=== PATIENT | male | born 1945 | race Caucasian/White ===

== ENCOUNTER 2022-02-09 17:08 | Inpatient (IN) | payer BC, MEDICAID ==
[~2022-02-09] VITALS: Ht 162.6 cm; Wt 77.6 kg
[2022-02-09] MEDS ORDERED: METO-290 PO (17:46)
[2022-02-09] MEDS ORDERED: TERA2CAP18 PO (17:46)
[2022-02-09] MEDS ORDERED: ONDA4TAB55 PO (17:46)
[2022-02-09] MEDS ORDERED: PRO40 PO (17:46)
[2022-02-09] MEDS ORDERED: DIPH-179 PO (17:46)
[2022-02-09 18:01] VITALS: BP_SYST 108
--- NOTE | 2022-02-09 19:28 | NUR ---
Patient to ER bed 1 to gown for evaluation. Side rails up. Report given to ROSARIO PINTO.
[2022-02-09] MEDS ORDERED: cefTRIAXone 1 GM in LIDOCAINE 1%, 20 ML MDV 2.1 ML IM ONE (20:30)
--- NOTE | 2022-02-09 20:39 | NUR ---
# 20 gauge angiocath placed to . Use of asceptic technique. Opsite placed over site. Blood return noted. Blood for lab drawn from site. Flushed with 10 cc of normal saline. No evidence of infiltration noted. Patient tolerated well. ALL BLOOD DRAWN AND SENT WITH LAB
[2022-02-09 20:45] LABS: BILIRUBIN,URINE NEGATIVE (NEGATIVE); BLOOD, URINE 1+ (NEGATIVE); COLOR,URINE YELLOW (YELLOW); GLUCOSE,URINE NEGATIVE (NEGATIVE); KETONES,URINE NEGATIVE (NEGATIVE); LEUKOCYTE ESTERASE ,URINE NEGATIVE (NEGATIVE); NITRITE, URINE NEGATIVE (NEGATIVE); PROTEIN URINE NEGATIVE (NEGATIVE); UROBILINOGEN,URINE 0.2 (0.2-1.0)
[2022-02-09] MEDS ORDERED: NACL 0.9% 1,000 ML IV ONE ×3 (20:45→22:15)
[2022-02-09 20:50] LABS: CLARITY/URINE SLIGHTLY CLOUDY (CLEAR)
[2022-02-09 21:00] LABS: ANION GAP 9 (5-15); CALCIUM 8.2 mg/dL (8.4-11.0); CHLORIDE 107 mmol/L (98-107); CREATININE 1.99 mg/dL (0.55-1.30); GLUCOSE 154 mg/dL (70-99); POTASSIUM 4.3 mmol/L (3.5-5.1); SODIUM SERUM 141 mmol/L (136-145); UREA NITROGEN, BLOOD 25 mg/dL (8-21)
[2022-02-09 21:04] LABS: HEMATOCRIT 34.5 % (36-54); HEMOGLOBIN 11.5 g/dL (14.0-18.0); MEAN CORPUSCULAR HEMOGLOBIN 28 pg (27-31); MEAN CORPUSCULAR HGB CONC 33 % (32-36); MEAN CORPUSCULAR VOLUME 83 fL (79.0-98.0); PLATELET COUNT (AUTO) 222 K/uL (130-430); RED BLOOD CELL COUNT(AUTO) 4.17 MIL/uL (4.2-6.2); RED CELL DISTRIBUTION WIDTH 19.7 % (9.0-15.0); WHITE BLOOD COUNT (AUTO) 3.8 K/uL (4.8-10.8)
[2022-02-09 21:09] LABS: ALANINE AMINOTRANSFERASE 17 U/L (12-78); ALBUMIN 3.6 g/dL (3.4-4.8); ASPARTATE AMINOTRANSFERASE 16 U/L (10-37); TOTAL BILIRUBIN 1.1 mg/dL (0.0-1.0)
[2022-02-09 21:12] LABS: BACTERIA,URINE FEW /HPF (None Seen); WBC,URINE 0-3 /HPF (0-3)
--- NOTE | 2022-02-09 21:45 | NUR ---
Spoke to Jeremiah, patient's caregiver to get further information on patient and his history.
--- NOTE | 2022-02-09 21:48 | NUR ---
LET ADMITTING KNOW TO CALL [facility]
[2022-02-09 22:02] LABS: BAND % (MANUAL) 9 % (0-6); BASOPHILS % (MANUAL) 0 % (0-2); EOSINOPHILS % (MANUAL) 0 % (0-7); LYMPHOCYTES % (MANUAL) 2 % (20-46); MONOCYTES % (MANUAL) 2 % (0-11)
[2022-02-09] MEDS ORDERED: ONDANSETRON HCL 4 MG/2 ML VIAL IVP ONE (22:15)
[2022-02-09] MEDS ORDERED: PIPERACILLIN/TAZO 3.375 GM in NS 50 ML IV ONE (22:15)
[2022-02-09] MEDS ORDERED: KCL 20 mEq in NS 1000 mL 1,000 ML IV SCH (22:15)
[2022-02-09] MEDS ORDERED: ACETAMINOPHEN 500 MG TABLET PO PRN (22:15)
--- NOTE | 2022-02-09 22:18 | NUR ---
Admit bed requested Patient will be admitted to care of . Admitted to TELE unit. Diagnosis ACUTE DEHYDRATION Inpatient (Yes or No) YES Observation (Yes or No) NO Orientation concerns or request close to nursing station (Yes or No) NO Covid Status NEGATIVE On vent or bipap NO Isolation requirements NO Needs a sitter NO From Home (Yes or if No enter name of facility) YES Requires Dialysis (Yes or No) NO Med Rec Completed (Yes of No) PENDING
--- NOTE | 2022-02-09 22:24 | NUR ---
PATIENT TAKEN TO CT SCAN.
[2022-02-09] MEDS ORDERED: PIPERACILLIN/TAZOBACTAM 3.375 GM/VIAL (ZOSYN) IV ONE (22:54)
--- NOTE | 2022-02-09 23:13 | NUR ---
Patient will be admitted to care of TELE. Admitted to unit. Will go to room . Belongings list completed. Complete and up to date summary report printed. SBAR report to be given at bedside with opportunity for questions.
[2022-02-09 23:44] VITALS: BP_SYST 105
[2022-02-10] VITALS: BP_SYST 105
[2022-02-10] MEDS ORDERED: KCL 20 mEq in NS 1000 mL 1,000 ML IV ONE (00:52)
[2022-02-10] MEDS ORDERED: PIPERACILLIN/TAZOBACTAM 2.25 GM VIAL IV ONE (00:52)
--- NOTE | 2022-02-10 01:17 | NUR ---
CONSULT CALLED FOR DR. JANET RICHARDSON E BUSINESS CONSULTANT THIS MORNING I SPOKE TO KARLY VALDEZ REASON FOR CONSULT: DEHYDRATION REQUESTING CONSULT: DR. GREENFIELD PROMOS EXECUTIVE PRODUCER PHONE NUMBER: [phone]
--- NOTE | 2022-02-10 01:19 | NUR ---
CONSULT CALLED FOR DR. GAVIRIA I SPOKE TO KARLY VALDEZ REASON FOR CONSULT: ACUTE DEHYDRATION REQUESTING CONSULT: DR. NIKITA RANGEL SALT MACHINE OPERATOR PHONE NUMBER: [phone]
[2022-02-10 04:00] VITALS: BP_SYST 110
[2022-02-10] MEDS ORDERED: PIPERACILLIN/TAZOBACTAM 2.25 GM/ DEX-IS 50 ML PREMIX IV SCH ×2 (06:00→12:00)
[2022-02-10 08:00] VITALS: BP_SYST 102
[2022-02-10] MEDS ORDERED: LOPERAMIDE HCL 2 MG CAPSULE PO PRN (11:15)
[2022-02-10] MEDS: ONDANSETRON HCL 4 MG/2 ML VIAL IVP PRN ×2 (11:22→21:15)
[2022-02-10 12:00] VITALS: BP_SYST 113
[2022-02-10] MEDS ORDERED: PANTOPRAZOLE SODIUM 40 MG/VIAL (PROTONIX) IVP ONE (14:15)
[2022-02-10 16:00] VITALS: BP_SYST 106
[2022-02-10] MEDS: metroNIDAZOLE 250 mg/NS 50 ML IV SCH ×2 (16:09→22:56)
[2022-02-10] MEDS: KCL 20 mEq in NS 1000 mL 1,000 ML IV SCH ×2 (17:28→21:34)
--- NOTE | 2022-02-10 18:45 | NUR ---
Mr Hercules has been assessed as indicated. He continues to have loose stools in the bedside commode. He denies pain. IVF have been well tolerated. He has been seen by multiple physicians today and is anticpiating some GI studies to be arranged for tomorrow. He is resting quietly at this time
--- NOTE | 2022-02-10 19:15 | NUR ---
Handoff has been given to Antonina García
[2022-02-10 20:00] VITALS: BP_SYST 118
[2022-02-10] MEDS: CEFEPIME 2 GM in D5W 100 ML IV SCH (21:15)
[2022-02-11 00:23] VITALS: BP_SYST 121
[2022-02-11] MEDS: metroNIDAZOLE 250 mg/NS 50 ML IV SCH ×2 (06:00→14:04)
[2022-02-11 06:16] LABS: BASOPHILS % (AUTO) 0.5 % (0.0-2.0); EOSINOPHILS # (AUTO) 0.1 K/uL (0.0-0.4); EOSINOPHILS % (AUTO) 2.3 % (0.0-4.0); HEMATOCRIT 24.7 % (36-54); HEMOGLOBIN 8.4 g/dL (14.0-18.0); LYMPHOCYTES # (AUTO) 0.7 K/uL (1.0-5.5); LYMPHOCYTES % (AUTO) 14.8 % (20.5-51.5); MEAN CORPUSCULAR HEMOGLOBIN 28 pg (27-31); MEAN CORPUSCULAR HGB CONC 34 % (32-36); MEAN CORPUSCULAR VOLUME 83 fL (79.0-98.0); MONOCYTES # (AUTO) 0.5 K/uL (0.0-1.0); MONOCYTES % (AUTO) 9.7 % (1.7-9.3); NEUTROPHILS # (AUTO) 3.5 K/uL (1.8-7.7); NEUTROPHILS % (AUTO) 72.7 % (40.0-70.0); PLATELET COUNT (AUTO) 185 K/uL (130-430); RED BLOOD CELL COUNT(AUTO) 2.96 MIL/uL (4.2-6.2); RED CELL DISTRIBUTION WIDTH 19.9 % (9.0-15.0); WHITE BLOOD COUNT (AUTO) 4.9 K/uL (4.8-10.8)
[2022-02-11 06:32] LABS: ALANINE AMINOTRANSFERASE 13 U/L (12-78); ALBUMIN 2.5 g/dL (3.4-4.8); ANION GAP 7 (5-15); ASPARTATE AMINOTRANSFERASE 11 U/L (10-37); BILIRUBIN,DIRECT 0.2 mg/dL (0.0-0.3); CALCIUM 8.4 mg/dL (8.4-11.0); CHLORIDE 109 mmol/L (98-107); CREATININE 1.49 mg/dL (0.55-1.30); GLUCOSE 97 mg/dL (70-99); LIPASE 96 U/L (73-393); POTASSIUM 4.1 mmol/L (3.5-5.1); SODIUM SERUM 135 mmol/L (136-145); TOTAL BILIRUBIN 0.9 mg/dL (0.0-1.0); UREA NITROGEN, BLOOD 18 mg/dL (8-21)
[2022-02-11 08:00] VITALS: BP_SYST 123
--- NOTE | 2022-02-11 10:05 | NUR ---
CONSULT ONCOLOGY RENAL CELL [facility] [place] [phone] S/W [facility]
[2022-02-11] MEDS ORDERED: fentaNYL CITRATE/PF 100 MCG/2 ML AMP ONE (10:49)
[2022-02-11] MEDS ORDERED: MIDAZOLAM HCL 5 MG/5 ML VIAL ONE (10:50)
[2022-02-11] MEDS: PANTOPRAZOLE SODIUM 40 MG/VIAL (PROTONIX) IVP SCH (12:31)
[2022-02-11] MEDS: CEFEPIME 2 GM in D5W 100 ML IV SCH ×2 (12:32→22:03)
[2022-02-11 12:44] VITALS: BP_SYST 137
[2022-02-11] MEDS ORDERED: ACETAMINOPHEN 325 MG TABLET PO PRN (13:15)
[2022-02-11] MEDS ORDERED: NALOXONE HCL 0.4 MG/ML AMP (NARCAN) IVP PRN ×2 (13:15)
[2022-02-11] MEDS ORDERED: MORPHINE 2 MG/ML INJ. SYRINGE IVP PRN ×2 (13:15)
[2022-02-11] MEDS ORDERED: ONDANSETRON HCL 4 MG/2 ML VIAL IVP PRN (13:15)
[2022-02-11] MEDS ORDERED: MAGNESIUM SULFATE 50 ML IV PRN (13:15)
[2022-02-11] MEDS ORDERED: MUPIROCIN 2% TOPICAL OINTMENT 22 GM NS PRN (13:15)
[2022-02-11] MEDS ORDERED: LORazepam 2 MG/ML VIAL IVP PRN (13:15)
[2022-02-11] MEDS ORDERED: ZOLPIDEM TARTRATE 5 MG TABLET PO PRN (13:15)
[2022-02-11] MEDS ORDERED: DOCUSATE SODIUM 100 MG CAPSULE PO PRN (13:15)
[2022-02-11] MEDS ORDERED: POTASSIUM CHLORIDE 20 MEQ TAB.PRT.SR PO PRN (13:15)
--- NOTE | 2022-02-11 13:27 | NUR ---
CONSULT CARDIOLOGY PERIAORTIC MASS DR FITZPATRICK [phone] S/W [facility]
[2022-02-11 16:42] VITALS: BP_SYST 130
[2022-02-11] MEDS: KCL 20 mEq in NS 1000 mL 1,000 ML IV SCH ×2 (17:00→18:32)
--- NOTE | 2022-02-11 18:45 | NUR ---
Mr Hercules has been assessed as indicated. The primary care Physician has been changed to Dr. Nuñez.He has completed a HIDA scan and an EGD exam today. loose stools have decreased greatly. he is now on a clear diet. IVF have been well tolerated. He continues to deny pain. He is presently resting quietly
--- NOTE | 2022-02-11 19:15 | NUR ---
handoff has been given to Tristan
[2022-02-11] MEDS: TERAZOSIN HCL 1 MG CAPSULE (HYTRIN) PO SCH (22:05)
[2022-02-11] MEDS: METHYLPREDNISOLONE SOD SUCC 40 MG/ML VIAL IVP SCH (22:09)
[2022-02-11] MEDS: HEPARIN SODIUM,PORCINE 5,000 UNITS/ML VIAL SUBCUT SCH (22:35)
[2022-02-12] MEDS: metroNIDAZOLE 250 mg/NS 50 ML IV SCH ×4 (00:18→23:08)
[2022-02-12 00:55] VITALS: BP_SYST 129
--- NOTE | 2022-02-12 02:11 | NUR ---
OOB, C/O SWEATING late entry d/t patient care. Patient reports sweating and gown was wet across chest. He denies pain. V/S taken: B/P 129/71, HR 54, 97% on room air and afebrile-97.0. He was assisted to BSC, voided 450ml yellow urine, and was assisted back to bed. fingerstick glucose checked and it was 140 mg/dL. wctm.
--- NOTE | 2022-02-12 02:15 | NUR ---
Nursing Rounds Checked on pt at 0215, pt being assisted off commode and back into bed. CRICKETZ
--- NOTE | 2022-02-12 04:50 | NUR ---
Johnny heart rate Media Reporter called to notify patient is sustaining Bradycardia HR in low 40's. Awakened patined and he reports he was sleeping good. He denied pain, feeling dizzy or lightheaded. He is having night sweats; gown on chest area is moist-will give new gown. V/S: BP 144/73, HR 52, Resp 18, 97% room air, 97.6 temporal. He was assisted to BSC for void d/t he voids small amounts and he sits on BSC few minutes till feels he is done.
[2022-02-12] MEDS: KCL 20 mEq in NS 1000 mL 1,000 ML IV SCH ×2 (06:56→19:51)
[2022-02-12 06:59] LABS: BASOPHILS % (AUTO) 0.1 % (0.0-2.0); EOSINOPHILS % (AUTO) 0.2 % (0.0-4.0); HEMATOCRIT 29.4 % (36-54); HEMOGLOBIN 9.9 g/dL (14.0-18.0); LYMPHOCYTES # (AUTO) 0.3 K/uL (1.0-5.5); LYMPHOCYTES % (AUTO) 9.7 % (20.5-51.5); MEAN CORPUSCULAR HEMOGLOBIN 28 pg (27-31); MEAN CORPUSCULAR HGB CONC 34 % (32-36); MEAN CORPUSCULAR VOLUME 84 fL (79.0-98.0); MONOCYTES % (AUTO) 1.6 % (1.7-9.3); NEUTROPHILS # (AUTO) 2.7 K/uL (1.8-7.7); NEUTROPHILS % (AUTO) 88.4 % (40.0-70.0); PLATELET COUNT (AUTO) 178 K/uL (130-430); RED BLOOD CELL COUNT(AUTO) 3.51 MIL/uL (4.2-6.2); RED CELL DISTRIBUTION WIDTH 19.2 % (9.0-15.0)
[2022-02-12 07:45] LABS: ANION GAP 11 (5-15); CALCIUM 8.5 mg/dL (8.4-11.0); CHLORIDE 108 mmol/L (98-107); CREATININE 1.42 mg/dL (0.55-1.30); GLUCOSE 162 mg/dL (70-99); POTASSIUM 4.9 mmol/L (3.5-5.1); SODIUM SERUM 133 mmol/L (136-145); UREA NITROGEN, BLOOD 13 mg/dL (8-21)
[2022-02-12] MEDS: PANTOPRAZOLE SODIUM 40 MG/VIAL (PROTONIX) IVP SCH (09:02)
[2022-02-12] MEDS: CEFEPIME 2 GM in D5W 100 ML IV SCH ×2 (09:03→20:43)
[2022-02-12] MEDS: HEPARIN SODIUM,PORCINE 5,000 UNITS/ML VIAL SUBCUT SCH ×2 (09:04→23:06)
[2022-02-12] MEDS: METHYLPREDNISOLONE SOD SUCC 40 MG/ML VIAL IVP SCH ×2 (09:15→23:05)
[2022-02-12] MEDS ORDERED: THEOPHYLLINE ANHYDROUS 200 MG CAP.ER.24H PO ONE (11:00)
[2022-02-12 13:09] VITALS: BP_SYST 132
[2022-02-12 16:25] VITALS: BP_SYST 120
--- NOTE | 2022-02-12 16:40 | NUR ---
P.T. NOTES P.T. EVAL COMPLETED; REFER TO EVAL FOR DETAILS.
--- NOTE | 2022-02-12 18:45 | NUR ---
Mr Hercules has been assessed as indicated. He denies pain. Has had very few loose stools today. He is anticipating a gastric emptying exam tomorrow. He is resting quietly at this time
--- NOTE | 2022-02-12 19:15 | NUR ---
Handoff has been given to ulises
[2022-02-12] MEDS: THEOPHYLLINE ANHYDROUS 200 MG CAP.ER.24H PO SCH (20:50)
[2022-02-12] MEDS: TERAZOSIN HCL 1 MG CAPSULE (HYTRIN) PO SCH (20:51)
[2022-02-13] MEDS: KCL 20 mEq in NS 1000 mL 1,000 ML IV SCH ×3 (06:57→22:00)
[2022-02-13] MEDS: metroNIDAZOLE 250 mg/NS 50 ML IV SCH ×3 (06:59→22:16)
[2022-02-13 07:19] LABS: BASOPHILS % (AUTO) 0.2 % (0.0-2.0); HEMATOCRIT 26.8 % (36-54); LYMPHOCYTES # (AUTO) 0.4 K/uL (1.0-5.5); LYMPHOCYTES % (AUTO) 7.1 % (20.5-51.5); MEAN CORPUSCULAR HEMOGLOBIN 28 pg (27-31); MEAN CORPUSCULAR HGB CONC 34 % (32-36); MEAN CORPUSCULAR VOLUME 83 fL (79.0-98.0); MONOCYTES # (AUTO) 0.1 K/uL (0.0-1.0); MONOCYTES % (AUTO) 2.1 % (1.7-9.3); NEUTROPHILS # (AUTO) 5.2 K/uL (1.8-7.7); NEUTROPHILS % (AUTO) 90.6 % (40.0-70.0); PLATELET COUNT (AUTO) 189 K/uL (130-430); RED BLOOD CELL COUNT(AUTO) 3.23 MIL/uL (4.2-6.2); RED CELL DISTRIBUTION WIDTH 18.8 % (9.0-15.0); WHITE BLOOD COUNT (AUTO) 5.8 K/uL (4.8-10.8)
[2022-02-13 07:33] LABS: ANION GAP 12 (5-15); CALCIUM 8.2 mg/dL (8.4-11.0); CHLORIDE 105 mmol/L (98-107); CREATININE 1.55 mg/dL (0.55-1.30); GLUCOSE 224 mg/dL (70-99); POTASSIUM 4.3 mmol/L (3.5-5.1); SODIUM SERUM 131 mmol/L (136-145); UREA NITROGEN, BLOOD 15 mg/dL (8-21)
[2022-02-13 08:04] VITALS: BP_SYST 125
[2022-02-13] MEDS: CEFEPIME 2 GM in D5W 100 ML IV SCH ×2 (08:33→20:36)
[2022-02-13] MEDS: METHYLPREDNISOLONE SOD SUCC 40 MG/ML VIAL IVP SCH ×2 (08:34→20:36)
[2022-02-13] MEDS: THEOPHYLLINE ANHYDROUS 200 MG CAP.ER.24H PO SCH (08:34)
[2022-02-13] MEDS: PANTOPRAZOLE SODIUM 40 MG/VIAL (PROTONIX) IVP SCH (08:35)
[2022-02-13] MEDS: HEPARIN SODIUM,PORCINE 5,000 UNITS/ML VIAL SUBCUT SCH ×2 (08:36→20:38)
--- NOTE | 2022-02-13 11:00 | NUR ---
patient currently off unit for gastric emptying ordered.
--- NOTE | 2022-02-13 13:00 | NUR ---
patient patricia from [facility]. pt alert, awake, oriented, denies pain and discomfort. telemonitor place back. vital sign stable, afebrile.
--- NOTE | 2022-02-13 14:18 | NUR ---
Dr. cramer made aware patient heart rate drops to 34 - 40's. asymptomatic. new order EKG stat. noted and carried out.
[2022-02-13 14:32] VITALS: BP_SYST 143
--- NOTE | 2022-02-13 15:30 | NUR ---
informed DR. cramer and Dr. Tapia about the EKG result.
[2022-02-13 16:07] VITALS: BP_SYST 141
--- NOTE | 2022-02-13 16:16 | NUR ---
gastric emptying is normal. md cramer aware, diet order received. soft, renal diet.
--- NOTE | 2022-02-13 18:50 | NUR ---
patient ate 100% of dinner tray served, denies nausea or vomiting or abdominal discomfort. ivf infusing, iv site patent. no swelling or infiltration. vital sign stable, afebrile. encourage to call when assistance needed, call light within reach. will monitor.
--- NOTE | 2022-02-13 19:15 | NUR ---
OPENING NOTE REPORT RECEIVED FROM DAYSHIFT NURSE. PATIENT RECEIVED LYING IN BED, AWAKE, ALERT, WATCHING TV, NO S/S OF ACUTE DISTRESS. BREATHING IS EVEN AND UNLABORED. HOB RAISED. IVF INFUSING WELL, IV SITE PATENT, NO SIGNS OF INFILTRATION OR INFECTION NOTED. CALL LIGHT WITH PATIENT, DEMONSTRATED BACK PROPER USE. BED IS LOCKED AND AT LOWEST POSITION. WILL CONTINUE TO MONITOR.
[2022-02-13 20:00] VITALS: BP_SYST 117
[2022-02-13] MEDS: SODIUM BICARBONATE 650 MG TABLET PO SCH (20:35)
[2022-02-13] MEDS: THEOPHYLLINE ANHYDROUS 300 MG TAB.SR.12H PO SCH (20:35)
[2022-02-13] MEDS: TERAZOSIN HCL 1 MG CAPSULE (HYTRIN) PO SCH (20:35)
[2022-02-13] MEDS: ONDANSETRON HCL 4 MG/2 ML VIAL IVP PRN (20:51)
[2022-02-14 00:57] VITALS: BP_SYST 128
[2022-02-14] MEDS: metroNIDAZOLE 250 mg/NS 50 ML IV SCH ×2 (05:14→14:38)
--- NOTE | 2022-02-14 06:27 | NUR ---
CLOSING NOTE PATIENT IN BED, RESTING. NO S/S OF ACUTE DISTRESS NOTED. BREATHING EVEN AND UNLABORED. HOB RAISED. IVF INFUSING WELL. IV SITE IS PATENT, NO SIGNS OF INFILTRATION OR INFECTION NOTED. ALL NEEDS MET THROUGHOUT SHIFT. FALL, SAFETY PRECAUTIONS MAINTAINED THROUGHOUT SHIFT. WILL CONTINUE TO MONITOR UNTIL PATIENT CARE IS ENDORSED TO ONCOMING DAYSHIFT NURSE.
[2022-02-14 07:36] LABS: HEMATOCRIT 27.4 % (36-54); HEMOGLOBIN 9.2 g/dL (14.0-18.0); LYMPHOCYTES # (AUTO) 0.5 K/uL (1.0-5.5); LYMPHOCYTES % (AUTO) 8.8 % (20.5-51.5); MEAN CORPUSCULAR HEMOGLOBIN 28 pg (27-31); MEAN CORPUSCULAR HGB CONC 34 % (32-36); MEAN CORPUSCULAR VOLUME 83 fL (79.0-98.0); MONOCYTES # (AUTO) 0.2 K/uL (0.0-1.0); MONOCYTES % (AUTO) 3.5 % (1.7-9.3); NEUTROPHILS # (AUTO) 4.8 K/uL (1.8-7.7); NEUTROPHILS % (AUTO) 87.7 % (40.0-70.0); PLATELET COUNT (AUTO) 183 K/uL (130-430); RED BLOOD CELL COUNT(AUTO) 3.29 MIL/uL (4.2-6.2); RED CELL DISTRIBUTION WIDTH 18.7 % (9.0-15.0); WHITE BLOOD COUNT (AUTO) 5.4 K/uL (4.8-10.8)
--- NOTE | 2022-02-14 07:36 | NUR ---
PHYSICAL THERAPY CO-SIGN The Physical Therapy Progress Notes documented by Product Builder have been reviewed. Reviewed/Co-Signed by: Jatin Natarajan Documentation Done by: CHUYITA SARABIA PTA Addendum: 02/14/22 at 0736 by Jatin Natarajan PT Amended: Links added.
[2022-02-14 07:56] VITALS: BP_SYST 134
[2022-02-14 07:57] LABS: ANION GAP 5 (5-15); CALCIUM 7.5 mg/dL (8.4-11.0); CHLORIDE 107 mmol/L (98-107); CREATININE 1.51 mg/dL (0.55-1.30); GLUCOSE 178 mg/dL (70-99); SODIUM SERUM 131 mmol/L (136-145); UREA NITROGEN, BLOOD 8 mg/dL (8-21)
[2022-02-14] MEDS: METHYLPREDNISOLONE SOD SUCC 40 MG/ML VIAL IVP SCH (09:06)
[2022-02-14] MEDS: THEOPHYLLINE ANHYDROUS 300 MG TAB.SR.12H PO SCH (09:06)
[2022-02-14] MEDS: PANTOPRAZOLE SODIUM 40 MG/VIAL (PROTONIX) IVP SCH (09:06)
[2022-02-14] MEDS: SODIUM BICARBONATE 650 MG TABLET PO SCH ×2 (09:07→14:39)
[2022-02-14] MEDS: CEFEPIME 2 GM in D5W 100 ML IV SCH (09:07)
[2022-02-14] MEDS: KCL 20 mEq in NS 1000 mL 1,000 ML IV SCH (09:27)
[2022-02-14] MEDS: HEPARIN SODIUM,PORCINE 5,000 UNITS/ML VIAL SUBCUT SCH (09:37)
[2022-02-14] MEDS ORDERED: AMOX500C2 PO ×2 (10:25)
[2022-02-14] MEDS ORDERED: PANT40TA45 PO (10:25)
[2022-02-14] MEDS ORDERED: [UNRECOGNIZED DRUG - CODE] PO ×2 (10:25)
[2022-02-14] MEDS ORDERED: PRED20TA PO (10:29)
[2022-02-14 12:39] VITALS: BP_SYST 130
[2022-02-14 16:05] VITALS: BP_SYST 132
--- NOTE | 2022-02-14 18:45 | NUR ---
RN NOTES:FAMILY CAME TO COMMUNITY ACTION WORKER PATIENT. DISCHARGE INSTRUCTIONS GIVEN TO PATIENT. VERBALIZED UNDERSTANDING.
--- NOTE | 2022-02-14 18:55 | NUR ---
RN NOTES: PATIENT DISCHARGED. NOT IN DISTRESS. NOT IN PAIN. AMBULATORY WITH CANE. DISCHARGED STABLE. WHEELED OUT TO LOBBY.
[2022-02-14] MEDS ORDERED: THEOPHYLLINE ANHYDROUS 200 MG CAP.ER.24H PO SCH (21:00)
== END 2022-02-14 19:00 | disposition home or self-care (01) | DRG 683 ==
LOC: SED 17:08 → STU 22:08 → SED 23:11 → STU 23:42
PROVIDERS: ADMIT Student in an Organized Health Care Education/Training Program; ATTEND Student in an Organized Health Care Education/Training Program
PROC: 0DB68ZX Excision of Stomach, Via Natural or Artificial Opening Endoscopic, Diagnostic (ICD-10-PCS; principal; 2022-02-11 14:15)
DX: N17.9 Acute kidney failure, unspecified (principal); C64.2 Malignant neoplasm of left kidney, except renal pelvis; K29.70 Gastritis, unspecified, without bleeding; E11.43 Type 2 diabetes mellitus with diabetic autonomic (poly)neuropathy; E86.0 Dehydration; K52.9 Noninfective gastroenteritis and colitis, unspecified; K44.9 Diaphragmatic hernia without obstruction or gangrene; K31.84 Gastroparesis; N40.0 Benign prostatic hyperplasia without lower urinary tract symptoms; D72.819 Decreased white blood cell count, unspecified; R00.1 Bradycardia, unspecified; Z20.822 Contact with and (suspected) exposure to COVID-19; I10 Essential (primary) hypertension; J45.909 Unspecified asthma, uncomplicated; Z88.2 Allergy status to sulfonamides; Z79.899 Other long term (current) drug therapy; Z87.891 Personal history of nicotine dependence; Z85.528 Personal history of other malignant neoplasm of kidney; Z92.21 Personal history of antineoplastic chemotherapy
CPT/HCPCS: 36415; 43239; 71045; 76376; 78226; 78264-TC; 80048; 80053; 80076; 81000; 82272; 82533; 82550; 82962; 83036; 83605; 83690; 83735; 84484; 85007; 85025; 85027; 87040; 87045-TC; 87046; 87081; 87086; 87230-TC; 88305; 88312; 88313; 89055; 93005; 93306; 96361; 96365; 96375; 97110-GP; 97112-GP; 97116-GP; 99285; A9537; A9541; C9113; G0378; J0692; J1030; J1644; J2250; J2405; J2543; J3010; J3480; J3490; J7030; J7060

== ENCOUNTER 2022-02-20 20:04 | Inpatient (IN) | payer BC, MEDICAID ==
[~2022-02-20] VITALS: Ht 160 cm; Wt 78.5 kg
[~2022-02-20 20:04] MED LIST: AMOX500C2 PO; DIPH-179 PO; METO-290 PO; ONDA4TAB55 PO; PANT40TA45 PO; PRED20TA PO; TERA2CAP18 PO; [UNRECOGNIZED DRUG - CODE] PO
[2022-02-20 20:39] VITALS: BP_SYST 128
[2022-02-21 01:10] LABS: RED BLOOD CELL COUNT(AUTO) 3.56 MIL/uL (4.2-6.2)
[2022-02-21 01:18] LABS: EOSINOPHILS # (AUTO) 0.1 K/uL (0.0-0.4); EOSINOPHILS % (AUTO) 0.8 % (0.0-4.0); HEMATOCRIT 30.2 % (36-54); LYMPHOCYTES # (AUTO) 0.7 K/uL (1.0-5.5); LYMPHOCYTES % (AUTO) 5.6 % (20.5-51.5); MEAN CORPUSCULAR HEMOGLOBIN 28 pg (27-31); MEAN CORPUSCULAR HGB CONC 33 % (32-36); MEAN CORPUSCULAR VOLUME 85 fL (79.0-98.0); MONOCYTES # (AUTO) 0.7 K/uL (0.0-1.0); MONOCYTES % (AUTO) 5.2 % (1.7-9.3); NEUTROPHILS # (AUTO) 11.2 K/uL (1.8-7.7); NEUTROPHILS % (AUTO) 88.4 % (40.0-70.0); PLATELET COUNT (AUTO) 236 K/uL (130-430); RED CELL DISTRIBUTION WIDTH 19.8 % (9.0-15.0); WHITE BLOOD COUNT (AUTO) 12.7 K/uL (4.8-10.8)
[2022-02-21 01:27] LABS: ANION GAP 5 (5-15); CALCIUM 7.7 mg/dL (8.4-11.0); CHLORIDE 104 mmol/L (98-107); CREATININE 1.48 mg/dL (0.55-1.30); GLUCOSE 111 mg/dL (70-99); POTASSIUM 3.4 mmol/L (3.5-5.1); SODIUM SERUM 136 mmol/L (136-145); UREA NITROGEN, BLOOD 16 mg/dL (8-21)
[2022-02-21] MEDS ORDERED: METHYLPREDNISOLONE SOD SUCC 40 MG/ML VIAL IVP ONE (01:30)
[2022-02-21] MEDS ORDERED: ALBUTEROL SULFATE 0.083% 2.5 MG/3 ML VIAL.NEB INH ONE (01:30)
[2022-02-21] MEDS ORDERED: IPRATROPIUM BROM 0.5 MG/2.5 ML VIAL.NEB (ATROVENT) INH ONE (01:30)
[2022-02-21 01:33] LABS: INR 1.2 (0.80-1.20); PROTHROMBIN TIME 11.6 SECS (9.5-12.5)
[2022-02-21 01:36] LABS: ALANINE AMINOTRANSFERASE 21 U/L (12-78); ALBUMIN 2.6 g/dL (3.4-4.8); ASPARTATE AMINOTRANSFERASE 7 U/L (10-37); TOTAL BILIRUBIN 1.1 mg/dL (0.0-1.0)
[2022-02-21 01:42] LABS: BILIRUBIN,URINE NEGATIVE (NEGATIVE); BLOOD, URINE 1+ (NEGATIVE); CLARITY/URINE CLEAR (CLEAR); COLOR,URINE YELLOW (YELLOW); GLUCOSE,URINE NEGATIVE (NEGATIVE); KETONES,URINE NEGATIVE (NEGATIVE); LEUKOCYTE ESTERASE ,URINE NEGATIVE (NEGATIVE); NITRITE, URINE NEGATIVE (NEGATIVE); PH,URINE 5.5 (5.0-8.0); PROTEIN URINE TRACE (NEGATIVE); UROBILINOGEN,URINE 0.2 (0.2-1.0)
[2022-02-21 01:55] LABS: BACTERIA,URINE FEW /HPF (None Seen); WBC,URINE 0-3 /HPF (0-3)
[2022-02-21 01:56] LABS: URIC ACID CRYSTALS,URINE 30-50 /HPF (None Seen)
[2022-02-21 04:45] VITALS: BP_SYST 118
[2022-02-21 08:00] VITALS: BP_SYST 133
[2022-02-21 11:43] VITALS: BP_SYST 123
[2022-02-21] MEDS ORDERED: D5/0.45 NS 500 ML IV ONE (12:45)
[2022-02-21 15:40] VITALS: BP_SYST 113
[2022-02-21] MEDS: cefTRIAXone 1 GM IVPB PREMIX 50 ML IV SCH (16:17)
[2022-02-21] MEDS: AZITHROMYCIN 250 MG in NS 250 ML IV SCH (16:30)
[2022-02-21] MEDS ORDERED: ENOXAPARIN SODIUM 40 MG/0.4 ML SYRINGE SUBCUT ONE (18:00)
[2022-02-21 20:00] VITALS: BP_SYST 135
[2022-02-21] MEDS ORDERED: methylPREDNISolone SOD SUCC/PF 62.5 MG/ML VIAL IVP SCH (21:00)
[2022-02-21] MEDS: DECADRON 4 MG TABLET PO SCH (21:49)
[2022-02-21] MEDS: ASCORBIC ACID 500 MG TABLET PO SCH (21:50)
[2022-02-21] MEDS: metroNIDAZOLE 500 mg/NS 100 ML IV SCH (21:51)
[2022-02-21] MEDS: NACL 0.9% 1,000 ML IV SCH (22:23)
[2022-02-22] VITALS: BP_SYST 116
[2022-02-22 04:00] VITALS: BP_SYST 129
[2022-02-22 06:36] LABS: BASOPHILS % (AUTO) 0.1 % (0.0-2.0); HEMATOCRIT 28.9 % (36-54); HEMOGLOBIN 9.8 g/dL (14.0-18.0); LYMPHOCYTES # (AUTO) 0.3 K/uL (1.0-5.5); LYMPHOCYTES % (AUTO) 4.4 % (20.5-51.5); MEAN CORPUSCULAR HEMOGLOBIN 28 pg (27-31); MEAN CORPUSCULAR HGB CONC 34 % (32-36); MEAN CORPUSCULAR VOLUME 83 fL (79.0-98.0); MONOCYTES # (AUTO) 0.3 K/uL (0.0-1.0); MONOCYTES % (AUTO) 3.8 % (1.7-9.3); NEUTROPHILS # (AUTO) 6.7 K/uL (1.8-7.7); NEUTROPHILS % (AUTO) 91.7 % (40.0-70.0); PLATELET COUNT (AUTO) 202 K/uL (130-430); RED BLOOD CELL COUNT(AUTO) 3.48 MIL/uL (4.2-6.2); RED CELL DISTRIBUTION WIDTH 19.8 % (9.0-15.0); WHITE BLOOD COUNT (AUTO) 7.3 K/uL (4.8-10.8)
[2022-02-22 07:07] LABS: ANION GAP 7 (5-15); CALCIUM 8.2 mg/dL (8.4-11.0); CHLORIDE 104 mmol/L (98-107); CREATININE 1.15 mg/dL (0.55-1.30); GLUCOSE 183 mg/dL (70-99); SODIUM SERUM 135 mmol/L (136-145); UREA NITROGEN, BLOOD 23 mg/dL (8-21)
[2022-02-22 08:00] VITALS: BP_SYST 130
[2022-02-22] MEDS: metroNIDAZOLE 500 mg/NS 100 ML IV SCH ×2 (08:46→20:59)
[2022-02-22] MEDS: ENOXAPARIN SODIUM 40 MG/0.4 ML SYRINGE SUBCUT SCH (08:47)
[2022-02-22] MEDS: ASCORBIC ACID 500 MG TABLET PO SCH ×2 (08:47→20:59)
[2022-02-22] MEDS: CHOLECALCIFEROL (VITAMIN D3) 5,000 UNIT TABLET PO SCH (08:47)
[2022-02-22] MEDS: NACL 0.9% 1,000 ML IV SCH ×2 (11:55→18:27)
[2022-02-22 12:00] VITALS: BP_SYST 124
[2022-02-22] MEDS: AZITHROMYCIN 250 MG in NS 250 ML IV SCH (13:43)
[2022-02-22] MEDS: cefTRIAXone 1 GM IVPB PREMIX 50 ML IV SCH (15:44)
[2022-02-22 16:00] VITALS: BP_SYST 117
[2022-02-22] MEDS: DECADRON 4 MG TABLET PO SCH (18:25)
[2022-02-22 20:00] VITALS: BP_SYST 127
[2022-02-23] VITALS (7 sets, daily range): BP systolic 133–155
[2022-02-23 08:18] LABS: BASOPHILS % (AUTO) 0.1 % (0.0-2.0); HEMATOCRIT 29.3 % (36-54); HEMOGLOBIN 9.9 g/dL (14.0-18.0); LYMPHOCYTES # (AUTO) 0.3 K/uL (1.0-5.5); LYMPHOCYTES % (AUTO) 3.6 % (20.5-51.5); MEAN CORPUSCULAR HEMOGLOBIN 28 pg (27-31); MEAN CORPUSCULAR HGB CONC 34 % (32-36); MEAN CORPUSCULAR VOLUME 84 fL (79.0-98.0); MONOCYTES # (AUTO) 0.2 K/uL (0.0-1.0); MONOCYTES % (AUTO) 2.6 % (1.7-9.3); NEUTROPHILS # (AUTO) 7.2 K/uL (1.8-7.7); NEUTROPHILS % (AUTO) 93.7 % (40.0-70.0); PLATELET COUNT (AUTO) 201 K/uL (130-430); RED BLOOD CELL COUNT(AUTO) 3.48 MIL/uL (4.2-6.2); RED CELL DISTRIBUTION WIDTH 19.5 % (9.0-15.0); WHITE BLOOD COUNT (AUTO) 7.7 K/uL (4.8-10.8)
[2022-02-23 09:06] LABS: ANION GAP 8 (5-15); CALCIUM 8.8 mg/dL (8.4-11.0); CHLORIDE 101 mmol/L (98-107); CREATININE 1.22 mg/dL (0.55-1.30); GLUCOSE 212 mg/dL (70-99); POTASSIUM 4.2 mmol/L (3.5-5.1); SODIUM SERUM 131 mmol/L (136-145); UREA NITROGEN, BLOOD 21 mg/dL (8-21)
[2022-02-23] MEDS: ENOXAPARIN SODIUM 40 MG/0.4 ML SYRINGE SUBCUT SCH (09:24)
[2022-02-23] MEDS: ASCORBIC ACID 500 MG TABLET PO SCH ×2 (09:25→21:00)
[2022-02-23] MEDS: CHOLECALCIFEROL (VITAMIN D3) 5,000 UNIT TABLET PO SCH (09:26)
[2022-02-23] MEDS ORDERED: DECADRON 4 MG TABLET PO SCH ×2 (14:00)
[2022-02-23] MEDS: metroNIDAZOLE 500 mg/NS 100 ML IV SCH ×2 (14:29→20:59)
[2022-02-23] MEDS: NACL 0.9% 1,000 ML IV SCH (14:32)
[2022-02-23] MEDS: AZITHROMYCIN 250 MG in NS 250 ML IV SCH (14:39)
[2022-02-23] MEDS: cefTRIAXone 1 GM IVPB PREMIX 50 ML IV SCH (15:42)
[2022-02-23] MEDS ORDERED: ATROPINE SULFATE 1 MG/10 ML SYRINGE IVP PRN (22:15)
[2022-02-24] VITALS: BP_SYST 145
[2022-02-24 07:06] LABS: BASOPHILS % (AUTO) 0.1 % (0.0-2.0); HEMATOCRIT 30.9 % (36-54); HEMOGLOBIN 10.4 g/dL (14.0-18.0); LYMPHOCYTES # (AUTO) 0.5 K/uL (1.0-5.5); LYMPHOCYTES % (AUTO) 6.5 % (20.5-51.5); MEAN CORPUSCULAR HEMOGLOBIN 28 pg (27-31); MEAN CORPUSCULAR HGB CONC 34 % (32-36); MEAN CORPUSCULAR VOLUME 84 fL (79.0-98.0); MONOCYTES # (AUTO) 0.4 K/uL (0.0-1.0); MONOCYTES % (AUTO) 5.5 % (1.7-9.3); NEUTROPHILS # (AUTO) 6.5 K/uL (1.8-7.7); NEUTROPHILS % (AUTO) 87.9 % (40.0-70.0); PLATELET COUNT (AUTO) 179 K/uL (130-430); RED BLOOD CELL COUNT(AUTO) 3.68 MIL/uL (4.2-6.2); WHITE BLOOD COUNT (AUTO) 7.4 K/uL (4.8-10.8)
[2022-02-24 07:56] LABS: ANION GAP 9 (5-15); CALCIUM 8.2 mg/dL (8.4-11.0); CHLORIDE 103 mmol/L (98-107); CREATININE 1.17 mg/dL (0.55-1.30); GLUCOSE 157 mg/dL (70-99); SODIUM SERUM 135 mmol/L (136-145); UREA NITROGEN, BLOOD 19 mg/dL (8-21)
[2022-02-24 08:00] VITALS: BP_SYST 137
[2022-02-24] MEDS: ASCORBIC ACID 500 MG TABLET PO SCH ×2 (10:06→22:19)
[2022-02-24] MEDS: THEOPHYLLINE ANHYDROUS 300 MG TAB.SR.12H PO SCH ×2 (10:07→22:20)
[2022-02-24] MEDS: ENOXAPARIN SODIUM 40 MG/0.4 ML SYRINGE SUBCUT SCH (10:07)
[2022-02-24] MEDS: CHOLECALCIFEROL (VITAMIN D3) 5,000 UNIT TABLET PO SCH (10:07)
[2022-02-24] MEDS: NACL 0.9% 1,000 ML IV SCH (10:08)
[2022-02-24] MEDS: metroNIDAZOLE 500 mg/NS 100 ML IV SCH ×2 (10:08→22:19)
[2022-02-24] MEDS ORDERED: ALBUTEROL MDI INHALATION 8 GM INH INH PRN (11:00)
[2022-02-24] MEDS ORDERED: ACETYLCYSTEINE 20% 4 ML VIAL (RT) INH SCH (11:00)
[2022-02-24] MEDS ORDERED: ALBUTEROL MDI INHALATION 8 GM INH INH ONE (11:15)
[2022-02-24 12:00] VITALS: BP_SYST 142
[2022-02-24] MEDS ORDERED: ALBUTEROL MDI INHALATION 8 GM INH INH SCH (13:00)
[2022-02-24] MEDS: AZITHROMYCIN 250 MG in NS 250 ML IV SCH (13:55)
[2022-02-24] MEDS: cefTRIAXone 1 GM IVPB PREMIX 50 ML IV SCH (15:28)
[2022-02-24 18:33] VITALS: BP_SYST 139
[2022-02-24 20:00] VITALS: BP_SYST 145
[2022-02-24 21:05] LABS: THYROID STIMULATING HORMONE 2.5 uIu/mL (0.36-3.74)
[2022-02-24] MEDS: METHYLPREDNISOLONE SOD SUCC 40 MG/ML VIAL IVP SCH (22:31)
[2022-02-25 02:00] VITALS: BP_SYST 139
[2022-02-25] MEDS: NACL 0.9% 1,000 ML IV SCH ×3 (06:35→21:35)
[2022-02-25 08:00] VITALS: BP_SYST 138
[2022-02-25] MEDS: ASCORBIC ACID 500 MG TABLET PO SCH ×2 (08:51→21:35)
[2022-02-25] MEDS: CHOLECALCIFEROL (VITAMIN D3) 5,000 UNIT TABLET PO SCH (08:51)
[2022-02-25] MEDS: ENOXAPARIN SODIUM 40 MG/0.4 ML SYRINGE SUBCUT SCH (08:52)
[2022-02-25] MEDS: THEOPHYLLINE ANHYDROUS 300 MG TAB.SR.12H PO SCH ×2 (08:59→21:35)
[2022-02-25] MEDS: METHYLPREDNISOLONE SOD SUCC 40 MG/ML VIAL IVP SCH ×2 (11:18→21:34)
[2022-02-25] MEDS: metroNIDAZOLE 500 mg/NS 100 ML IV SCH ×2 (11:18→21:35)
[2022-02-25 12:00] VITALS: BP_SYST 150
[2022-02-25 16:00] VITALS: BP_SYST 134
[2022-02-25] MEDS: AZITHROMYCIN 250 MG in NS 250 ML IV SCH (16:22)
[2022-02-25] MEDS: cefTRIAXone 1 GM IVPB PREMIX 50 ML IV SCH (16:22)
[2022-02-25 20:00] VITALS: BP_SYST 148
[2022-02-26 02:00] VITALS: BP_SYST 141
[2022-02-26 06:11] LABS: BASOPHILS % (AUTO) 0.1 % (0.0-2.0); LYMPHOCYTES # (AUTO) 0.2 K/uL (1.0-5.5); LYMPHOCYTES % (AUTO) 3.2 % (20.5-51.5); MEAN CORPUSCULAR HEMOGLOBIN 28 pg (27-31); MEAN CORPUSCULAR HGB CONC 33 % (32-36); MEAN CORPUSCULAR VOLUME 84 fL (79.0-98.0); MONOCYTES # (AUTO) 0.2 K/uL (0.0-1.0); MONOCYTES % (AUTO) 3.7 % (1.7-9.3); NEUTROPHILS # (AUTO) 5.8 K/uL (1.8-7.7); PLATELET COUNT (AUTO) 175 K/uL (130-430); RED BLOOD CELL COUNT(AUTO) 3.56 MIL/uL (4.2-6.2); RED CELL DISTRIBUTION WIDTH 18.3 % (9.0-15.0); WHITE BLOOD COUNT (AUTO) 6.2 K/uL (4.8-10.8)
[2022-02-26 06:23] LABS: ANION GAP 11 (5-15); CALCIUM 7.9 mg/dL (8.4-11.0); CHLORIDE 103 mmol/L (98-107); CREATININE 1.53 mg/dL (0.55-1.30); GLUCOSE 258 mg/dL (70-99); POTASSIUM 4.2 mmol/L (3.5-5.1); SODIUM SERUM 135 mmol/L (136-145); UREA NITROGEN, BLOOD 21 mg/dL (8-21)
[2022-02-26 08:00] VITALS: BP_SYST 126
[2022-02-26] MEDS: METHYLPREDNISOLONE SOD SUCC 40 MG/ML VIAL IVP SCH (08:48)
[2022-02-26] MEDS: THEOPHYLLINE ANHYDROUS 300 MG TAB.SR.12H PO SCH (09:06)
[2022-02-26] MEDS: ASCORBIC ACID 500 MG TABLET PO SCH (09:06)
[2022-02-26] MEDS: CHOLECALCIFEROL (VITAMIN D3) 5,000 UNIT TABLET PO SCH (09:07)
[2022-02-26] MEDS: ENOXAPARIN SODIUM 40 MG/0.4 ML SYRINGE SUBCUT SCH (09:08)
[2022-02-26 16:51] VITALS: BP_SYST 126
[2022-02-26] MEDS ORDERED: ASC500 PO (18:13)
[2022-02-26] MEDS ORDERED: CHOL500013 PO (18:13)
[2022-02-26] MEDS ORDERED: Zinc Sulfate PO (18:13)
[2022-02-26] MEDS ORDERED: GUAI-723 PO (18:14)
[2022-02-26] MEDS ORDERED: IPRA3AMP9 INH (18:15)
[2022-02-27] MEDS ORDERED: DECADRON 4 MG TABLET PO SCH (09:00)
== END 2022-02-26 18:30 | disposition home or self-care (01) | DRG 177 ==
LOC: SED 20:04 → STU 02-21 03:06
PROVIDERS: ADMIT Internal Medicine; ATTEND Internal Medicine
DX: U07.1 COVID-19 (principal); J12.82 Pneumonia due to coronavirus disease 2019; J44.0 Chronic obstructive pulmonary disease with (acute) lower respiratory infection; C64.9 Malignant neoplasm of unspecified kidney, except renal pelvis; K52.1 Toxic gastroenteritis and colitis; E86.0 Dehydration; I12.9 Hypertensive chronic kidney disease with stage 1 through stage 4 chronic kidney disease, or unspecified chronic kidney disease; N18.30 Chronic kidney disease, stage 3 unspecified; R00.1 Bradycardia, unspecified; Z85.528 Personal history of other malignant neoplasm of kidney; Z79.899 Other long term (current) drug therapy
CPT/HCPCS: 36415; 71045; 80048; 80053; 80198; 81000; 82728; 83605; 84443; 84484; 85025; 85379; 85610-TC; 85730-TC; 86140; 87040; 87081; 87086; 87230-TC; 93005; 93923; 94640; 94664; 96374; 99285; G0378; J0456; J0696; J1030; J1650; J3490; J7050; J7613; J8540

== ENCOUNTER 2023-08-24 20:04 | Emergency (ER) | payer BC, MEDICAID ==
[~2023-08-24] VITALS: Ht 152.4 cm; Wt 136.1 kg
[~2023-08-24 20:04] MED LIST changes: -AMOX500C2 PO; +ASC500 PO; +CHOL500013 PO; +GUAI-723 PO; +IPRA3AMP9 INH; +Zinc Sulfate PO; -[UNRECOGNIZED DRUG - CODE] PO
[2023-08-24 20:20] VITALS: BP_SYST 139; PULSE 74; RESP 18; TEMP 97.2; O2SAT 100
[2023-08-24 20:59] LABS: BASOPHILS % (AUTO) 0.7 % (0.0-2.0); EOSINOPHILS # (AUTO) 0.2 K/uL (0.0-0.4); EOSINOPHILS % (AUTO) 3.5 % (0.0-4.0); HEMATOCRIT 24.4 % (36-54); LYMPHOCYTES % (AUTO) 15.6 % (20.5-51.5); MEAN CORPUSCULAR HEMOGLOBIN 26 pg (27-31); MEAN CORPUSCULAR HGB CONC 33 % (32-36); MEAN CORPUSCULAR VOLUME 79 fL (79.0-98.0); MONOCYTES # (AUTO) 0.5 K/uL (0.0-1.0); MONOCYTES % (AUTO) 7.3 % (1.7-9.3); NEUTROPHILS # (AUTO) 4.7 K/uL (1.8-7.7); NEUTROPHILS % (AUTO) 72.9 % (40.0-70.0); PLATELET COUNT (AUTO) 250 K/uL (130-430); RED CELL DISTRIBUTION WIDTH 15.7 % (9.0-15.0); WHITE BLOOD COUNT (AUTO) 6.4 K/uL (4.8-10.8)
[2023-08-24 21:18] LABS: ANION GAP 10 (5-15); CALCIUM 8.9 mg/dL (8.4-11.0); CARBON DIOXIDE 23 mmol/L (23-29); CHLORIDE 108 mmol/L (98-107); GLUCOSE 81 mg/dL (74-106); POTASSIUM 4.9 mmol/L (3.5-5.1); SODIUM SERUM 141 mmol/L (136-145); UREA NITROGEN, BLOOD 40 mg/dL (8-21)
[2023-08-24 21:45] VITALS: BP_SYST 122; PULSE 78; RESP 18; TEMP 98.3; O2SAT 98
== END 2023-08-24 22:33 | disposition home or self-care (01) ==
LOC: SED 20:04
DX: D64.9 Anemia, unspecified (principal); R53.1 Weakness; J44.9 Chronic obstructive pulmonary disease, unspecified; E11.9 Type 2 diabetes mellitus without complications; I10 Essential (primary) hypertension; Z85.528 Personal history of other malignant neoplasm of kidney; Z79.899 Other long term (current) drug therapy
CPT/HCPCS: 36415; 80048; 85025; 86886; 86900; 86901; 99283

== ENCOUNTER 2023-09-25 15:47 | Observation (INO) | payer BC, MEDICAID ==
[~2023-09-25] VITALS: Ht 170.2 cm; Wt 77.6 kg
[~2023-09-25 15:47] MED LIST changes: -ASC500 PO; -CHOL500013 PO; -DIPH-179 PO; -GUAI-723 PO; -IPRA3AMP9 INH; -METO-290 PO; -ONDA4TAB55 PO; -PANT40TA45 PO; -PRED20TA PO; -Zinc Sulfate PO
[2023-09-25 16:30] VITALS: BP_SYST 118; PULSE 75; RESP 18; TEMP 97; O2SAT 96
[2023-09-25 18:44] LABS: BASOPHILS % (AUTO) 0.7 % (0.0-2.0); EOSINOPHILS # (AUTO) 0.3 K/uL (0.0-0.4); EOSINOPHILS % (AUTO) 4.3 % (0.0-4.0); HEMATOCRIT 29.6 % (36-54); HEMOGLOBIN 9.7 g/dL (14.0-18.0); LYMPHOCYTES # (AUTO) 0.6 K/uL (1.0-5.5); LYMPHOCYTES % (AUTO) 8.4 % (20.5-51.5); MEAN CORPUSCULAR HEMOGLOBIN 25 pg (27-31); MEAN CORPUSCULAR HGB CONC 33 % (32-36); MEAN CORPUSCULAR VOLUME 75 fL (79.0-98.0); MONOCYTES # (AUTO) 0.5 K/uL (0.0-1.0); MONOCYTES % (AUTO) 7.4 % (1.7-9.3); NEUTROPHILS # (AUTO) 5.3 K/uL (1.8-7.7); NEUTROPHILS % (AUTO) 79.2 % (40.0-70.0); PLATELET COUNT (AUTO) 328 K/uL (130-430); RED BLOOD CELL COUNT(AUTO) 3.92 MIL/uL (4.2-6.2); RED CELL DISTRIBUTION WIDTH 15.8 % (9.0-15.0); WHITE BLOOD COUNT (AUTO) 6.7 K/uL (4.8-10.8)
[2023-09-25 19:05] LABS: ANION GAP 14 (5-15); CALCIUM 9.2 mg/dL (8.4-11.0); CARBON DIOXIDE 24 mmol/L (23-29); CHLORIDE 101 mmol/L (98-107); CREATININE 1.85 mg/dL (0.55-1.30); GLUCOSE 83 mg/dL (74-106); POTASSIUM 4.9 mmol/L (3.5-5.1); SODIUM SERUM 139 mmol/L (136-145); UREA NITROGEN, BLOOD 38 mg/dL (8-21)
[2023-09-25 19:09] LABS: ALANINE AMINOTRANSFERASE 14 U/L (12-78); ALBUMIN 4.2 g/dL (3.4-4.8); ASPARTATE AMINOTRANSFERASE 10 U/L (10-37); BILIRUBIN,DIRECT 0.1 mg/dL (0.0-0.3); LIPASE 31 U/L (16-77); TOTAL BILIRUBIN 0.6 mg/dL (0.0-1.0); TOTAL PROTEIN, SERUM 8.1 g/dL (6.4-8.3)
[2023-09-25] MEDS: NACL 0.9% 1,000 ML IV ONE (20:02)
[2023-09-25] MEDS: ONDANSETRON HCL 4 MG/2 ML VIAL IVP ONE (20:03)
[2023-09-25] MEDS: CIPROFLOXACIN LACT 400 MG/D5W 200 ML IV SCH (22:54)
[2023-09-25] MEDS ORDERED: DOCU250C71 PO (23:03)
[2023-09-25] MEDS ORDERED: METO10TA3 PO (23:03)
[2023-09-25] MEDS ORDERED: ASPI-1393 PO (23:03)
[2023-09-25] MEDS ORDERED: PROC5TAB12 PO (23:09)
[2023-09-25] MEDS ORDERED: ONDANSETRON 8 MG PO (23:12)
[2023-09-25] MEDS ORDERED: ONDA8TAB60 PO (23:16)
[2023-09-25] MEDS ORDERED: CHOL200019 PO (23:16)
[2023-09-25] MEDS ORDERED: FAMO40TA7 PO (23:20)
[2023-09-25] MEDS ORDERED: LOPE2CAP PO (23:20)
[2023-09-26] MEDS ORDERED: ONDANSETRON HCL 4 MG/2 ML VIAL IVP PRN (00:30)
[2023-09-26] MEDS: D5/0.45 NS 1,000 ML IV SCH (01:16)
[2023-09-26 04:03] VITALS: BP_SYST 115; PULSE 60; RESP 18; TEMP 98.1; O2SAT 99
[2023-09-26 04:46] VITALS: BP_SYST 115; PULSE 60; RESP 18; TEMP 98.1; O2SAT 99
[2023-09-26 04:51] VITALS: BP_SYST 115; PULSE 60; RESP 18; TEMP 98.1
[2023-09-26] MEDS: PIPERACILLIN/TAZO 3.375 GM in NS 50 ML IV SCH (07:08)
[2023-09-26 08:18] VITALS: BP_SYST 110; PULSE 55; RESP 17; TEMP 98; O2SAT 99
[2023-09-26] MEDS ORDERED: PROCHLORPERAZINE MALEATE 5 MG TABLET PO PRN (09:30)
[2023-09-26] MEDS: 0.45% NACL 1,000 ML IV SCH (10:39)
[2023-09-26] MEDS ORDERED: BISACODYL 5 MG TABLET.DR (DULCOLAX) PO PRN (10:45)
[2023-09-26] MEDS ORDERED: DIATR MEGLU/DIATRIZ SOD 30 ML SOLUTION PO ONE (12:35)
[2023-09-26 15:00] VITALS: BP_SYST 112; PULSE 60; RESP 17; TEMP 98; O2SAT 99
[2023-09-26] MEDS: METOCLOPRAMIDE HCL 10 MG TABLET PO SCH (17:29)
[2023-09-26] MEDS: SUCRALFATE 1 GM/10 ML UDC GT SCH (17:29)
[2023-09-26] MEDS ORDERED: iohexoL 350 mgI/mL, 100 ML INFUS..BTL IV ONE (17:40)
[2023-09-26] MEDS ORDERED: GASTROGRAFIN 120 ML ONE (19:13)
[2023-09-26] MEDS: TERAZOSIN HCL 1 MG CAPSULE (HYTRIN) PO SCH (21:00)
[2023-09-26 21:02] VITALS: BP_SYST 119; PULSE 56; RESP 18; TEMP 96.4; O2SAT 97
[2023-09-27] VITALS (7 sets, daily range): BP systolic 101–141; PULSE 56–90; RESP 18; TEMP 96.4–98.4; O2SAT 97–100
[2023-09-27 00:31] LABS: BILIRUBIN,URINE NEGATIVE (NEGATIVE); BLOOD, URINE NEGATIVE (NEGATIVE); CLARITY/URINE CLEAR (CLEAR); COLOR,URINE YELLOW (YELLOW); GLUCOSE,URINE NEGATIVE (NEGATIVE); KETONES,URINE NEGATIVE (NEGATIVE); LEUKOCYTE ESTERASE ,URINE NEGATIVE (NEGATIVE); NITRITE, URINE NEGATIVE (NEGATIVE); PROTEIN URINE NEGATIVE (NEGATIVE); UROBILINOGEN,URINE 0.2 (0.2-1.0)
[2023-09-27 07:30] LABS: EOSINOPHILS # (AUTO) 0.2 K/uL (0.0-0.4); EOSINOPHILS % (AUTO) 5.3 % (0.0-4.0); HEMATOCRIT 25.4 % (36-54); HEMOGLOBIN 8.4 g/dL (14.0-18.0); LYMPHOCYTES # (AUTO) 0.5 K/uL (1.0-5.5); LYMPHOCYTES % (AUTO) 10.2 % (20.5-51.5); MEAN CORPUSCULAR HEMOGLOBIN 25 pg (27-31); MEAN CORPUSCULAR HGB CONC 33 % (32-36); MEAN CORPUSCULAR VOLUME 75 fL (79.0-98.0); MONOCYTES # (AUTO) 0.4 K/uL (0.0-1.0); MONOCYTES % (AUTO) 9.8 % (1.7-9.3); NEUTROPHILS # (AUTO) 3.3 K/uL (1.8-7.7); NEUTROPHILS % (AUTO) 73.7 % (40.0-70.0); PLATELET COUNT (AUTO) 253 K/uL (130-430); RED CELL DISTRIBUTION WIDTH 15.6 % (9.0-15.0); WHITE BLOOD COUNT (AUTO) 4.5 K/uL (4.8-10.8)
[2023-09-27 07:43] LABS: ANION GAP 10 (5-15); CALCIUM 8.7 mg/dL (8.4-11.0); CARBON DIOXIDE 22 mmol/L (23-29); CHLORIDE 107 mmol/L (98-107); CREATININE 1.59 mg/dL (0.55-1.30); GLUCOSE 89 mg/dL (74-106); POTASSIUM 4.3 mmol/L (3.5-5.1); SODIUM SERUM 139 mmol/L (136-145); UREA NITROGEN, BLOOD 20 mg/dL (8-21)
[2023-09-27] MEDS ORDERED: LEVO250T73 PO (09:36)
[2023-09-27] MEDS ORDERED: SUCR1TAB2 PO (09:36)
[2023-09-27] MEDS ORDERED: PANT20TA2 PO (09:36)
[2023-09-27] MEDS: DOCUSATE SODIUM 250 MG CAPSULE PO SCH (09:56)
[2023-09-27] MEDS: ASPIRIN 81 MG TABLET(ECOTRIN) PO SCH (09:56)
[2023-09-27] MEDS: FAMOTIDINE 20 MG TABLET PO SCH (10:02)
[2023-09-27] MEDS ORDERED: ONDA4VIA52 PO (10:07)
[2023-09-27] MEDS: ONDANSETRON HCL 4 MG/2 ML VIAL IVP SCH (13:19)
[2023-09-27] MEDS: LIPASE/PROTEASE/AMYLASE 1 CAP PO SCH (18:07)
[2023-09-27] MEDS: ONDANSETRON HCL 4 MG/2 ML VIAL ONE (21:05)
[2023-09-28 00:02] VITALS: BP_SYST 138; PULSE 64; RESP 18; TEMP 98.2; O2SAT 99
[2023-09-28 07:30] LABS: BASOPHILS # (AUTO) 0.1 K/uL (0.0-0.2); BASOPHILS % (AUTO) 1.7 % (0.0-2.0); EOSINOPHILS # (AUTO) 0.2 K/uL (0.0-0.4); EOSINOPHILS % (AUTO) 7.1 % (0.0-4.0); HEMATOCRIT 24.7 % (36-54); LYMPHOCYTES # (AUTO) 0.5 K/uL (1.0-5.5); LYMPHOCYTES % (AUTO) 17.3 % (20.5-51.5); MEAN CORPUSCULAR HEMOGLOBIN 24 pg (27-31); MEAN CORPUSCULAR HGB CONC 32 % (32-36); MEAN CORPUSCULAR VOLUME 75 fL (79.0-98.0); MONOCYTES # (AUTO) 0.4 K/uL (0.0-1.0); MONOCYTES % (AUTO) 12.3 % (1.7-9.3); NEUTROPHILS # (AUTO) 1.9 K/uL (1.8-7.7); NEUTROPHILS % (AUTO) 61.6 % (40.0-70.0); PLATELET COUNT (AUTO) 225 K/uL (130-430); RED BLOOD CELL COUNT(AUTO) 3.28 MIL/uL (4.2-6.2); RED CELL DISTRIBUTION WIDTH 15.2 % (9.0-15.0); WHITE BLOOD COUNT (AUTO) 3.1 K/uL (4.8-10.8)
[2023-09-28 07:55] LABS: ANION GAP 8 (5-15); CALCIUM 8.6 mg/dL (8.4-11.0); CARBON DIOXIDE 23 mmol/L (23-29); CHLORIDE 106 mmol/L (98-107); CREATININE 1.75 mg/dL (0.55-1.30); GLUCOSE 88 mg/dL (74-106); POTASSIUM 3.7 mmol/L (3.5-5.1); SODIUM SERUM 137 mmol/L (136-145); UREA NITROGEN, BLOOD 14 mg/dL (8-21)
[2023-09-28 08:24] VITALS: BP_SYST 104; PULSE 55; RESP 17; TEMP 97.3; O2SAT 100
[2023-09-28 09:45] VITALS: O2SAT 100
[2023-09-28 11:25] VITALS: BP_SYST 112; PULSE 76; RESP 16; TEMP 97; O2SAT 100
[2023-09-28 15:14] VITALS: BP_SYST 117; PULSE 60; RESP 16; TEMP 97.3; O2SAT 99
[2023-09-28 19:26] VITALS: BP_SYST 117; PULSE 63; RESP 18; TEMP 96.6; O2SAT 100
[2023-09-29 00:16] VITALS: BP_SYST 124; PULSE 63; RESP 16; TEMP 96.8; O2SAT 100
[2023-09-29] MEDS: LOPERAMIDE HCL 2 MG CAPSULE PO PRN (02:56)
[2023-09-29 05:42] LABS: BASOPHILS # (AUTO) 0.1 K/uL (0.0-0.2); BASOPHILS % (AUTO) 1.7 % (0.0-2.0); EOSINOPHILS # (AUTO) 0.2 K/uL (0.0-0.4); EOSINOPHILS % (AUTO) 5.4 % (0.0-4.0); HEMATOCRIT 23.7 % (36-54); HEMOGLOBIN 7.7 g/dL (14.0-18.0); LYMPHOCYTES # (AUTO) 0.5 K/uL (1.0-5.5); LYMPHOCYTES % (AUTO) 14.3 % (20.5-51.5); MEAN CORPUSCULAR HEMOGLOBIN 24 pg (27-31); MEAN CORPUSCULAR HGB CONC 33 % (32-36); MEAN CORPUSCULAR VOLUME 74 fL (79.0-98.0); MONOCYTES # (AUTO) 0.4 K/uL (0.0-1.0); MONOCYTES % (AUTO) 11.6 % (1.7-9.3); NEUTROPHILS # (AUTO) 2.4 K/uL (1.8-7.7); PLATELET COUNT (AUTO) 214 K/uL (130-430); RED BLOOD CELL COUNT(AUTO) 3.19 MIL/uL (4.2-6.2); RED CELL DISTRIBUTION WIDTH 15.6 % (9.0-15.0); WHITE BLOOD COUNT (AUTO) 3.6 K/uL (4.8-10.8)
[2023-09-29] MEDS: SUCRALFATE 1 GM/10 ML UDC PO SCH (06:00)
[2023-09-29 06:26] LABS: ALANINE AMINOTRANSFERASE 15 U/L (12-78); ALBUMIN 3.3 g/dL (3.4-4.8); ANION GAP 13 (5-15); ASPARTATE AMINOTRANSFERASE 8 U/L (10-37); CALCIUM 8.7 mg/dL (8.4-11.0); CARBON DIOXIDE 20 mmol/L (23-29); CHLORIDE 108 mmol/L (98-107); CREATININE 1.67 mg/dL (0.55-1.30); GLUCOSE 89 mg/dL (74-106); PHOSPHORUS 2.8 mg/dL (2.7-4.5); POTASSIUM 4.1 mmol/L (3.5-5.1); SODIUM SERUM 141 mmol/L (136-145); TOTAL BILIRUBIN 0.4 mg/dL (0.0-1.0); TOTAL PROTEIN, SERUM 6.3 g/dL (6.4-8.3); UREA NITROGEN, BLOOD 10 mg/dL (8-21)
[2023-09-29 07:30] LABS: TOTAL IRON BIND. CAPACITY 253 ug/dL (250-450)
[2023-09-29 08:25] VITALS: BP_SYST 112; PULSE 60; RESP 17; TEMP 98.2
[2023-09-29 09:50] VITALS: O2SAT 97
[2023-09-29] MEDS ORDERED: BISA-79 PO (10:40)
[2023-09-29 11:17] VITALS: BP_SYST 125; PULSE 60; RESP 16; TEMP 96.9; O2SAT 100
[2023-09-29 12:48] VITALS: BP_SYST 125; PULSE 60; RESP 16; TEMP 96.9; O2SAT 100
[2023-09-29 13:11] VITALS: BP_SYST 125; PULSE 60; RESP 16; TEMP 96.9; O2SAT 100
== END 2023-09-29 15:30 | disposition home health service (06) ==
LOC: SED 15:47 → INTOOBSV 09-26 00:27 → SMU 09-26 00:27
PROVIDERS: ADMIT Specialist; ATTEND Specialist
DX: C64.2 Malignant neoplasm of left kidney, except renal pelvis (principal); I12.9 Hypertensive chronic kidney disease with stage 1 through stage 4 chronic kidney disease, or unspecified chronic kidney disease; E11.22 Type 2 diabetes mellitus with diabetic chronic kidney disease; N18.9 Chronic kidney disease, unspecified; N17.9 Acute kidney failure, unspecified; J44.9 Chronic obstructive pulmonary disease, unspecified; N40.0 Benign prostatic hyperplasia without lower urinary tract symptoms; K52.0 Gastroenteritis and colitis due to radiation; K57.92 Diverticulitis of intestine, part unspecified, without perforation or abscess without bleeding; K59.00 Constipation, unspecified; E86.0 Dehydration; Z85.528 Personal history of other malignant neoplasm of kidney; Z90.5 Acquired absence of kidney; Z79.899 Other long term (current) drug therapy; Y84.2 Radiological procedure and radiotherapy as the cause of abnormal reaction of the patient, or of later complication, without mention of misadventure at the time of the procedure
CPT/HCPCS: 80076; 80048 ×3; 83690; 85025 ×4; 87040; 36415 ×4; 76376 ×2; 74176; 99285; 96361 ×4; 96365 ×2; 96375; 96366 ×4; 87081; 74177; 84146; 96376 ×3; 81001; 82570; 84302; 78226; 81003; 80053; 83540; 83550; 83735; 84100; 97530; 97116; 97162; 82728; J0744; J2405 ×4; Q9964; Q9967; J2543 ×3; Q9963; G0378 ×4; A9537; J8597; Q0164

== ENCOUNTER 2024-05-04 18:08 | Inpatient (IN) | payer BC, MEDICAID ==
[~2024-05-04] VITALS: Ht 157.5 cm; Wt 84.6 kg
[~2024-05-04 18:08] MED LIST changes: +ASPI-1393 PO; +BISA-79 PO; +CHOL200019 PO; +DOCU250C71 PO; +LEVO250T73 PO; +LOPE2CAP PO; +METO10TA3 PO; +ONDA4VIA52 PO; +ONDA8TAB60 PO; +PANT20TA2 PO; +PROC5TAB12 PO; +SUCR1TAB2 PO
[2024-05-04 19:29] VITALS: BP_SYST 136; PULSE 103; RESP 20; TEMP 100; O2SAT 96
[2024-05-04 20:01] LABS: BASOPHILS # (AUTO) 0.1 K/uL (0.0-0.2); BASOPHILS % (AUTO) 0.5 % (0.0-2.0); HEMATOCRIT 33.8 % (36-54); HEMOGLOBIN 11.3 g/dL (14.0-18.0); LYMPHOCYTES # (AUTO) 0.5 K/uL (1.0-5.5); LYMPHOCYTES % (AUTO) 3.2 % (20.5-51.5); MEAN CORPUSCULAR HEMOGLOBIN 27 pg (27-31); MEAN CORPUSCULAR HGB CONC 33 % (32-36); MEAN CORPUSCULAR VOLUME 80 fL (79.0-98.0); MONOCYTES # (AUTO) 0.8 K/uL (0.0-1.0); MONOCYTES % (AUTO) 4.8 % (1.7-9.3); NEUTROPHILS # (AUTO) 15.5 K/uL (1.8-7.7); NEUTROPHILS % (AUTO) 91.5 % (40.0-70.0); PLATELET COUNT (AUTO) 193 K/uL (130-430); RED BLOOD CELL COUNT(AUTO) 4.24 MIL/uL (4.2-6.2); RED CELL DISTRIBUTION WIDTH 16.5 % (9.0-15.0)
[2024-05-04 20:18] LABS: BILIRUBIN,URINE NEGATIVE (NEGATIVE); BLOOD, URINE 1+ (NEGATIVE); CLARITY/URINE CLEAR (CLEAR); COLOR,URINE YELLOW (YELLOW); GLUCOSE,URINE NEGATIVE (NEGATIVE); KETONES,URINE NEGATIVE (NEGATIVE); LEUKOCYTE ESTERASE ,URINE NEGATIVE (NEGATIVE); NITRITE, URINE NEGATIVE (NEGATIVE); PROTEIN URINE 2+ (NEGATIVE); UROBILINOGEN,URINE 0.2 (0.2-1.0)
[2024-05-04 20:25] LABS: ALANINE AMINOTRANSFERASE 53 U/L (12-78); ALBUMIN 4.3 g/dL (3.4-4.8); ANION GAP 14 (5-15); ASPARTATE AMINOTRANSFERASE 60 U/L (10-37); CALCIUM 9.1 mg/dL (8.4-11.0); CARBON DIOXIDE 20 mmol/L (23-29); CHLORIDE 104 mmol/L (98-107); CREATININE 2.81 mg/dL (0.55-1.30); GLUCOSE 159 mg/dL (74-106); POTASSIUM 5.1 mmol/L (3.5-5.1); SODIUM SERUM 138 mmol/L (136-145); TOTAL BILIRUBIN 1.9 mg/dL (0.0-1.0); TOTAL PROTEIN, SERUM 8.1 g/dL (6.4-8.3); UREA NITROGEN, BLOOD 36 mg/dL (8-21)
[2024-05-04 20:27] LABS: BILIRUBIN,DIRECT 0.4 mg/dL (0.0-0.3)
[2024-05-04] MEDS: NS 1000 ML IV.SOLN IV ONE (20:44)
[2024-05-04] MEDS: ONDANSETRON HCL 4 MG/2 ML VIAL IVP ONE (20:45)
[2024-05-04 22:10] LABS: BACTERIA,URINE RARE /HPF (None Seen); RBC,URINE 0-3 /HPF (0-3); WBC,URINE 0-3 /HPF (0-3)
[2024-05-04] MEDS ORDERED: ACET-73 PO (22:19)
[2024-05-04] MEDS ORDERED: ALBMDI INH (22:19)
[2024-05-04] MEDS ORDERED: FERR325T30 PO (22:19)
[2024-05-04] MEDS ORDERED: FAMO40TA7 PO (22:19)
[2024-05-04] MEDS ORDERED: SODI650T PO (22:19)
[2024-05-04] MEDS: NACL 0.9% 1,000 ML IV ONE (22:29)
[2024-05-04] MEDS ORDERED: HYDROmorphone 1 MG/ML INJ. CARTRIDGE IVP PRN (22:30)
[2024-05-05] VITALS (10 sets, daily range): BP systolic 102–143; PULSE 72–95; RESP 17–25; TEMP 99.3–101; O2SAT 93–99
[2024-05-05] MEDS: PANTOPRAZOLE SODIUM 40 MG/VIAL (PROTONIX) IV SCH (00:05)
[2024-05-05] MEDS: 0.45% NACL 1,000 ML IV SCH (00:06)
[2024-05-05] MEDS: ONDANSETRON HCL 4 MG/2 ML VIAL IVP SCH (06:57)
[2024-05-05] MEDS ORDERED: ACETAMINOPHEN 500 MG TABLET PO PRN (10:15)
[2024-05-05] MEDS: PIPERACILLIN/TAZOBACTAM 2.25 GM in NS 50 ML IV SCH (13:30)
[2024-05-05] MEDS: SUCRALFATE 1 GM TABLET PO SCH (14:59)
[2024-05-05] MEDS: ACETAMINOPHEN 500 MG TABLET PO PRN (21:46)
[2024-05-05] MEDS: TERAZOSIN HCL 1 MG CAPSULE (HYTRIN) PO SCH (22:15)
[2024-05-06] VITALS (8 sets, daily range): BP systolic 101–139; PULSE 65–84; RESP 16–18; TEMP 97.9–99.9; O2SAT 93–99
[2024-05-06] MEDS: ALBUTEROL SULFATE 0.083% 2.5 MG/3 ML VIAL.NEB INH PRN (03:29)
[2024-05-06 07:19] LABS: ANION GAP 15 (5-15); CALCIUM 8.3 mg/dL (8.4-11.0); CARBON DIOXIDE 18 mmol/L (23-29); CHLORIDE 101 mmol/L (98-107); CREATININE 2.49 mg/dL (0.55-1.30); GLUCOSE 137 mg/dL (74-106); POTASSIUM 4.3 mmol/L (3.5-5.1); SODIUM SERUM 134 mmol/L (136-145); THYROID STIMULATING HORMONE 2.63 uIu/mL (0.34-4.82); UREA NITROGEN, BLOOD 31 mg/dL (8-21)
[2024-05-06 07:23] LABS: BASOPHILS % (AUTO) 0.2 % (0.0-2.0); EOSINOPHILS # (AUTO) 0.1 K/uL (0.0-0.4); EOSINOPHILS % (AUTO) 0.8 % (0.0-4.0); HEMATOCRIT 29.5 % (36-54); HEMOGLOBIN 9.4 g/dL (14.0-18.0); LYMPHOCYTES # (AUTO) 0.6 K/uL (1.0-5.5); LYMPHOCYTES % (AUTO) 4.5 % (20.5-51.5); MEAN CORPUSCULAR HEMOGLOBIN 26 pg (27-31); MEAN CORPUSCULAR HGB CONC 32 % (32-36); MEAN CORPUSCULAR VOLUME 81 fL (79.0-98.0); MONOCYTES # (AUTO) 0.6 K/uL (0.0-1.0); MONOCYTES % (AUTO) 4.3 % (1.7-9.3); NEUTROPHILS # (AUTO) 12.3 K/uL (1.8-7.7); NEUTROPHILS % (AUTO) 90.2 % (40.0-70.0); PLATELET COUNT (AUTO) 144 K/uL (130-430); RED BLOOD CELL COUNT(AUTO) 3.62 MIL/uL (4.2-6.2); RED CELL DISTRIBUTION WIDTH 17.2 % (9.0-15.0); WHITE BLOOD COUNT (AUTO) 13.7 K/uL (4.8-10.8)
[2024-05-06 14:34] LABS: ALBUMIN 3.2 g/dL (3.4-4.8); BILIRUBIN,DIRECT 0.6 mg/dL (0.0-0.3); TOTAL BILIRUBIN 2.2 mg/dL (0.0-1.0); TOTAL PROTEIN, SERUM 6.9 g/dL (6.4-8.3)
[2024-05-06] MEDS: TERAZOSIN HCL 1 MG CAPSULE (HYTRIN) PO ONE (18:35)
[2024-05-07] VITALS (7 sets, daily range): BP systolic 114–145; PULSE 70–88; RESP 16–18; TEMP 97–98.8; O2SAT 96–99
[2024-05-07 07:48] LABS: BASOPHILS % (AUTO) 0.3 % (0.0-2.0); EOSINOPHILS # (AUTO) 0.1 K/uL (0.0-0.4); EOSINOPHILS % (AUTO) 1.1 % (0.0-4.0); HEMOGLOBIN 8.9 g/dL (14.0-18.0); LYMPHOCYTES # (AUTO) 0.4 K/uL (1.0-5.5); LYMPHOCYTES % (AUTO) 4.5 % (20.5-51.5); MEAN CORPUSCULAR HEMOGLOBIN 26 pg (27-31); MEAN CORPUSCULAR HGB CONC 33 % (32-36); MEAN CORPUSCULAR VOLUME 80 fL (79.0-98.0); MONOCYTES # (AUTO) 0.5 K/uL (0.0-1.0); MONOCYTES % (AUTO) 6.4 % (1.7-9.3); NEUTROPHILS # (AUTO) 7.3 K/uL (1.8-7.7); NEUTROPHILS % (AUTO) 87.7 % (40.0-70.0); PLATELET COUNT (AUTO) 130 K/uL (130-430); RED BLOOD CELL COUNT(AUTO) 3.37 MIL/uL (4.2-6.2); RED CELL DISTRIBUTION WIDTH 16.7 % (9.0-15.0); WHITE BLOOD COUNT (AUTO) 8.4 K/uL (4.8-10.8)
[2024-05-07 08:07] LABS: TOTAL IRON BIND. CAPACITY 188 ug/dL (250-450)
[2024-05-07 08:18] LABS: ERYTHROCYTE SEDIMENTATION RATE 65 MM/HR (0-15)
[2024-05-07 08:22] LABS: ANION GAP 13 (5-15); CALCIUM 8.6 mg/dL (8.4-11.0); CARBON DIOXIDE 17 mmol/L (23-29); CHLORIDE 105 mmol/L (98-107); CREATININE 2.72 mg/dL (0.55-1.30); GLUCOSE 128 mg/dL (74-106); PHOSPHORUS 3.3 mg/dL (2.7-4.5); POTASSIUM 4.5 mmol/L (3.5-5.1); SODIUM SERUM 135 mmol/L (136-145); UREA NITROGEN, BLOOD 33 mg/dL (8-21)
[2024-05-07 11:47] LABS: BILIRUBIN,URINE NEGATIVE (NEGATIVE); BLOOD, URINE 3+ (NEGATIVE); CLARITY/URINE CLOUDY (CLEAR); COLOR,URINE YELLOW (YELLOW); GLUCOSE,URINE NEGATIVE (NEGATIVE); KETONES,URINE NEGATIVE (NEGATIVE); LEUKOCYTE ESTERASE ,URINE NEGATIVE (NEGATIVE); NITRITE, URINE NEGATIVE (NEGATIVE); PROTEIN URINE 1+ (NEGATIVE); UROBILINOGEN,URINE 0.2 (0.2-1.0)
[2024-05-07 12:07] LABS: BACTERIA,URINE FEW /HPF (None Seen); MUCUS,URINE 1+ /LPF (None Seen); WBC,URINE 0-3 /HPF (0-3)
[2024-05-07] MEDS: CITRIC ACID/SODIUM CITRATE 30 ML UDC PO ONE (17:34)
[2024-05-08] VITALS (7 sets, daily range): BP systolic 114–127; PULSE 64–72; RESP 16–17; TEMP 97.6–98.9; O2SAT 96–99
[2024-05-08 07:58] LABS: ANION GAP 13 (5-15); CALCIUM 8.1 mg/dL (8.4-11.0); CARBON DIOXIDE 18 mmol/L (23-29); CHLORIDE 108 mmol/L (98-107); CREATININE 3.05 mg/dL (0.55-1.30); GLUCOSE 109 mg/dL (74-106); SODIUM SERUM 139 mmol/L (136-145); UREA NITROGEN, BLOOD 35 mg/dL (8-21)
[2024-05-08 08:06] LABS: BASOPHILS % (AUTO) 0.2 % (0.0-2.0); EOSINOPHILS # (AUTO) 0.3 K/uL (0.0-0.4); EOSINOPHILS % (AUTO) 3.7 % (0.0-4.0); HEMATOCRIT 26.4 % (36-54); HEMOGLOBIN 8.8 g/dL (14.0-18.0); LYMPHOCYTES # (AUTO) 0.4 K/uL (1.0-5.5); LYMPHOCYTES % (AUTO) 5.9 % (20.5-51.5); MEAN CORPUSCULAR HEMOGLOBIN 26 pg (27-31); MEAN CORPUSCULAR HGB CONC 33 % (32-36); MEAN CORPUSCULAR VOLUME 79 fL (79.0-98.0); MONOCYTES # (AUTO) 0.6 K/uL (0.0-1.0); MONOCYTES % (AUTO) 7.9 % (1.7-9.3); NEUTROPHILS % (AUTO) 82.3 % (40.0-70.0); PLATELET COUNT (AUTO) 157 K/uL (130-430); RED BLOOD CELL COUNT(AUTO) 3.35 MIL/uL (4.2-6.2); RED CELL DISTRIBUTION WIDTH 17.2 % (9.0-15.0); WHITE BLOOD COUNT (AUTO) 7.3 K/uL (4.8-10.8)
[2024-05-08 08:11] LABS: ERYTHROCYTE SEDIMENTATION RATE 85 MM/HR (0-15)
[2024-05-08] MEDS: CITRIC ACID/SODIUM CITRATE 30 ML UDC PO SCH (08:56)
[2024-05-08] MEDS: SOD FERRIC GLUC COMPLEX/SUC 125 MG in NS 100 ML IV SCH (17:00)
[2024-05-09] VITALS (10 sets, daily range): BP systolic 129–132; PULSE 66–96; RESP 16–19; TEMP 97.5–98.2; O2SAT 94–97
[2024-05-09 07:20] LABS: BASOPHILS % (AUTO) 0.5 % (0.0-2.0); EOSINOPHILS # (AUTO) 0.3 K/uL (0.0-0.4); EOSINOPHILS % (AUTO) 5.6 % (0.0-4.0); HEMATOCRIT 24.3 % (36-54); HEMOGLOBIN 7.9 g/dL (14.0-18.0); LYMPHOCYTES # (AUTO) 0.4 K/uL (1.0-5.5); LYMPHOCYTES % (AUTO) 6.1 % (20.5-51.5); MEAN CORPUSCULAR HEMOGLOBIN 26 pg (27-31); MEAN CORPUSCULAR HGB CONC 32 % (32-36); MEAN CORPUSCULAR VOLUME 80 fL (79.0-98.0); MONOCYTES # (AUTO) 0.6 K/uL (0.0-1.0); MONOCYTES % (AUTO) 9.2 % (1.7-9.3); NEUTROPHILS # (AUTO) 4.9 K/uL (1.8-7.7); NEUTROPHILS % (AUTO) 78.6 % (40.0-70.0); PLATELET COUNT (AUTO) 172 K/uL (130-430); RED BLOOD CELL COUNT(AUTO) 3.05 MIL/uL (4.2-6.2); RED CELL DISTRIBUTION WIDTH 17.3 % (9.0-15.0); WHITE BLOOD COUNT (AUTO) 6.2 K/uL (4.8-10.8)
[2024-05-09 07:32] LABS: ERYTHROCYTE SEDIMENTATION RATE 84 MM/HR (0-15)
[2024-05-09 07:53] LABS: ALANINE AMINOTRANSFERASE 35 U/L (12-78); ALBUMIN 2.2 g/dL (3.4-4.8); ANION GAP 13 (5-15); ASPARTATE AMINOTRANSFERASE 18 U/L (10-37); CALCIUM 8.2 mg/dL (8.4-11.0); CARBON DIOXIDE 18 mmol/L (23-29); CHLORIDE 109 mmol/L (98-107); CREATININE 2.49 mg/dL (0.55-1.30); GLUCOSE 107 mg/dL (74-106); LACTATE DEHYDROGENASE 105 U/L (85-227); PHOSPHORUS 3.7 mg/dL (2.7-4.5); POTASSIUM 3.8 mmol/L (3.5-5.1); SODIUM SERUM 140 mmol/L (136-145); TOTAL BILIRUBIN 0.7 mg/dL (0.0-1.0); TOTAL PROTEIN, SERUM 5.7 g/dL (6.4-8.3); UREA NITROGEN, BLOOD 28 mg/dL (8-21)
[2024-05-09] MEDS: FOLIC ACID 1 MG TABLET PO SCH (11:51)
[2024-05-09] MEDS: PANTOPRAZOLE SODIUM 40 MG/VIAL (PROTONIX) IVP SCH (21:21)
[2024-05-10 00:03] VITALS: BP_SYST 143; PULSE 76; RESP 16; TEMP 97.9; O2SAT 95
[2024-05-10 07:00] VITALS: O2SAT 96
[2024-05-10 08:00] VITALS: BP_SYST 143; PULSE 69; RESP 18; TEMP 97.5; O2SAT 98
[2024-05-10 08:05] LABS: BASOPHILS % (AUTO) 0.4 % (0.0-2.0); EOSINOPHILS # (AUTO) 0.4 K/uL (0.0-0.4); EOSINOPHILS % (AUTO) 5.7 % (0.0-4.0); HEMATOCRIT 24.1 % (36-54); HEMOGLOBIN 7.9 g/dL (14.0-18.0); LYMPHOCYTES # (AUTO) 0.5 K/uL (1.0-5.5); LYMPHOCYTES % (AUTO) 6.6 % (20.5-51.5); MEAN CORPUSCULAR HEMOGLOBIN 26 pg (27-31); MEAN CORPUSCULAR HGB CONC 33 % (32-36); MEAN CORPUSCULAR VOLUME 80 fL (79.0-98.0); MONOCYTES # (AUTO) 0.6 K/uL (0.0-1.0); MONOCYTES % (AUTO) 8.6 % (1.7-9.3); NEUTROPHILS # (AUTO) 5.4 K/uL (1.8-7.7); NEUTROPHILS % (AUTO) 78.7 % (40.0-70.0); PLATELET COUNT (AUTO) 225 K/uL (130-430); RED BLOOD CELL COUNT(AUTO) 3.04 MIL/uL (4.2-6.2); RED CELL DISTRIBUTION WIDTH 17.4 % (9.0-15.0); WHITE BLOOD COUNT (AUTO) 6.9 K/uL (4.8-10.8)
[2024-05-10] MEDS ORDERED: OXYBUTYNIN CHLORIDE 5 MG XL TAB PO SCH (08:30)
[2024-05-10] MEDS: oxyBUTYnin chloride 5 MG TABLET PO ONE (09:23)
[2024-05-10 12:00] VITALS: BP_SYST 135; PULSE 72; RESP 18; TEMP 97.2; O2SAT 98
[2024-05-10] MEDS ORDERED: LIPA1CAP35 PO (13:19)
[2024-05-10 15:00] VITALS: BP_SYST 135; PULSE 70; RESP 18; TEMP 97.4; O2SAT 96
[2024-05-10] MEDS ORDERED: LIPASE/PROTEASE/AMYLASE 1 CAP PO SCH (18:00)
[2024-05-10] MEDS ORDERED: oxyBUTYnin chloride 5 MG TABLET PO SCH (21:00)
[2024-05-11] MEDS ORDERED: TAMS-11 PO (15:49)
== END 2024-05-10 16:30 | disposition home or self-care (01) | DRG 438 ==
LOC: SED 18:08 → SMU 22:20
PROVIDERS: ADMIT Specialist; ATTEND Specialist
DX: K86.89 Other specified diseases of pancreas (principal); R65.11 Systemic inflammatory response syndrome (SIRS) of non-infectious origin with acute organ dysfunction; C64.9 Malignant neoplasm of unspecified kidney, except renal pelvis; E46 Unspecified protein-calorie malnutrition; E87.1 Hypo-osmolality and hyponatremia; N17.9 Acute kidney failure, unspecified; N39.0 Urinary tract infection, site not specified; N18.9 Chronic kidney disease, unspecified; I25.10 Atherosclerotic heart disease of native coronary artery without angina pectoris; E11.22 Type 2 diabetes mellitus with diabetic chronic kidney disease; D64.9 Anemia, unspecified; E83.41 Hypermagnesemia; E83.51 Hypocalcemia; R33.8 Other retention of urine; N40.1 Benign prostatic hyperplasia with lower urinary tract symptoms; K80.20 Calculus of gallbladder without cholecystitis without obstruction; E11.65 Type 2 diabetes mellitus with hyperglycemia; J98.01 Acute bronchospasm; E83.52 Hypercalcemia; K76.0 Fatty (change of) liver, not elsewhere classified; Z90.5 Acquired absence of kidney; Z79.899 Other long term (current) drug therapy; Z88.8 Allergy status to other drugs, medicaments and biological substances; Z68.34 Body mass index [BMI] 34.0-34.9, adult
CPT/HCPCS: 36415; 74181; 76700; 80048; 80053; 80076; 81000; 81001; 81015; 82272; 82533; 83010; 83540; 83550; 83615; 83735; 84100; 84443; 84484; 85025; 85651; 86880; 87040; 93005; 94070; 94640; 94760; 96375; 97110-GP; 97116-GP; 97530-GP; 99285; J0696; J2405; J2470; J2543; J2916; J7030; J7060

== ENCOUNTER 2024-05-11 14:09 | Emergency (ER) | payer BC, MEDICAID ==
[~2024-05-11] VITALS: Ht 157.5 cm; Wt 81.6 kg
[~2024-05-11 14:09] MED LIST changes: +ACET-73 PO; +ALBMDI INH; -ASPI-1393 PO; -BISA-79 PO; -DOCU250C71 PO; +FAMO40TA7 PO; +FERR325T30 PO; -LEVO250T73 PO; +LIPA1CAP35 PO; -LOPE2CAP PO; -METO10TA3 PO; -ONDA4VIA52 PO; -PANT20TA2 PO; -PROC5TAB12 PO; +SODI650T PO
[2024-05-11 14:22] VITALS: BP_SYST 160; PULSE 91; RESP 16; TEMP 98.2; O2SAT 96
[2024-05-11 15:31] LABS: BASOPHILS % (AUTO) 0.3 % (0.0-2.0); EOSINOPHILS # (AUTO) 0.2 K/uL (0.0-0.4); EOSINOPHILS % (AUTO) 2.1 % (0.0-4.0); HEMATOCRIT 24.1 % (36-54); HEMOGLOBIN 8.2 g/dL (14.0-18.0); LYMPHOCYTES # (AUTO) 0.4 K/uL (1.0-5.5); MEAN CORPUSCULAR HEMOGLOBIN 27 pg (27-31); MEAN CORPUSCULAR HGB CONC 34 % (32-36); MEAN CORPUSCULAR VOLUME 79 fL (79.0-98.0); MONOCYTES # (AUTO) 0.6 K/uL (0.0-1.0); MONOCYTES % (AUTO) 8.1 % (1.7-9.3); NEUTROPHILS # (AUTO) 6.3 K/uL (1.8-7.7); NEUTROPHILS % (AUTO) 84.5 % (40.0-70.0); PLATELET COUNT (AUTO) 268 K/uL (130-430); RED BLOOD CELL COUNT(AUTO) 3.06 MIL/uL (4.2-6.2); RED CELL DISTRIBUTION WIDTH 17.3 % (9.0-15.0); WHITE BLOOD COUNT (AUTO) 7.4 K/uL (4.8-10.8)
[2024-05-11 15:32] LABS: ALANINE AMINOTRANSFERASE 28 U/L (12-78); ANION GAP 15 (5-15); ASPARTATE AMINOTRANSFERASE 12 U/L (10-37); BILIRUBIN,DIRECT 0.2 mg/dL (0.0-0.3); CALCIUM 9.3 mg/dL (8.4-11.0); CARBON DIOXIDE 19 mmol/L (23-29); CHLORIDE 109 mmol/L (98-107); GLUCOSE 115 mg/dL (74-106); POTASSIUM 3.8 mmol/L (3.5-5.1); SODIUM SERUM 143 mmol/L (136-145); TOTAL BILIRUBIN 0.6 mg/dL (0.0-1.0); TOTAL PROTEIN, SERUM 6.8 g/dL (6.4-8.3); UREA NITROGEN, BLOOD 33 mg/dL (8-21)
[2024-05-11] MEDS ORDERED: TAMS-11 PO (15:49)
[2024-05-11 16:39] VITALS: BP_SYST 147; PULSE 77; RESP 22; TEMP 98.2; O2SAT 96
[2024-05-11] MEDS ORDERED: BACITRACIN 1 GM OINT TP ONE (23:52)
== END 2024-05-11 16:24 | disposition home or self-care (01) ==
LOC: SED 14:09
DX: R33.8 Other retention of urine (principal); R10.30 Lower abdominal pain, unspecified; R00.0 Tachycardia, unspecified; E11.9 Type 2 diabetes mellitus without complications; I10 Essential (primary) hypertension; Z85.528 Personal history of other malignant neoplasm of kidney; Z79.899 Other long term (current) drug therapy; Z79.2 Long term (current) use of antibiotics
CPT/HCPCS: 36415; 80048; 80076; 85025; 93005; 99284